=== PATIENT | male | born 1975 | race Caucasian/White ===

== ENCOUNTER → 2017-03-11 | Outpatient (CLI) | payer OTHER ==
[~2017-03-11] VITALS: Ht 182.9 cm; Wt 136.1 kg
[~2017-03-11] MED LIST: ALPR1TAB2 PO; GABA600T2 PO; HYDR50TA6 PO; IOHEXOL 180 MG/ML 10 ML VIAL. IT ONE; IOHEXOL 300 MG/ML 10ML VIAL. IT ONE; LIDOCAINE 1% / SOD BICARB 8.4% 20 ML VIAL. IJ ONE; LISI40TA PO; MELO15TA23 PO; METO50TA2 PO; OXYC-323 PO
[2017-03-11 09:24] VITALS: BP 134/92
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
== END | disposition home or self-care (01) ==
LOC: RAD 08:48
PROVIDERS: ATTEND Anesthesiology
DX: S39.92XA Unspecified injury of lower back, initial encounter (principal); M47.897 Other spondylosis, lumbosacral region; R20.0 Anesthesia of skin; V49.9XXA Car occupant (driver) (passenger) injured in unspecified traffic accident, initial encounter; Y93.89 Activity, other specified; Y92.89 Other specified places as the place of occurrence of the external cause; Y99.8 Other external cause status
CPT/HCPCS: 72129; 72132; 72270; Q9967

== ENCOUNTER → 2020-12-28 | Outpatient (CLI) | payer MEDICAID ==
[2017-03-11 09:24] VITALS: BP 134/92
[~2020-12-28] MED LIST changes: -GABA600T2 PO; +GABA600T7 PO; -HYDR50TA6 PO; +HYDR50TA9 PO; -IOHEXOL 180 MG/ML 10 ML VIAL. IT ONE; -IOHEXOL 300 MG/ML 10ML VIAL. IT ONE; -LIDOCAINE 1% / SOD BICARB 8.4% 20 ML VIAL. IJ ONE; +LISI-130 PO; -LISI40TA PO; -METO50TA2 PO; +METO50TA6 PO; -OXYC-323 PO; +OXYC1TAB15 PO
--- NOTE | 2020-12-28 10:40 | KCIC ---
MRI THORACIC SPINE WO, MR LUMBAR SPINE WO -[id number] History: COMPLEX REGIONAL PAIN SYNDROME TYPE 1, New onset of right lower leg pain and numbness after the shingles. Technique: Multiplanar, multi sequential MR imaging was performed of the thoracic and lumbar spine wi thout intravenous contrast. Comparison: None FINDINGS: THORACIC SPINE: Normal vertebral body height and alignment. No acute fracture. Intraosseous hemangioma at T3 vertebra l body. Normal spinal cord caliber and morphology with no significant abnormality. Intervertebral dis c heights are preserved. No canal stenosis or neuroforaminal narrowing. LUMBAR SPINE: Normal vertebral body height and alignment. No acute fracture. Conus terminates at the normal locatio n. No evidence of nerve root clumping. Modic type 2 degeneration at L5-S1. Interosseous hemangioma at S2 vertebral body. L1-L2: No canal or neuroforaminal narrowing. L2-L3: No canal or neuroforaminal narrowing. L3-L4: No canal or neuroforaminal narrowing. L4-L5: No canal or neuroforaminal narrowing. L5-S1: Mild diffuse disc bulge. No canal or significant neuroforaminal narrowing. Impression: Unremarkable thoracic and lumbar spine MRI. Electronically signed by: Lauren Murillo MD (12/28/2020 10:37 AM) [id number]
--- NOTE | 2020-12-28 10:40 | KCIC ---
MRI THORACIC SPINE WO, MR LUMBAR SPINE WO -[id number] History: COMPLEX REGIONAL PAIN SYNDROME TYPE 1, New onset of right lower leg pain and numbness after the shingles. Technique: Multiplanar, multi sequential MR imaging was performed of the thoracic and lumbar spine wi thout intravenous contrast. Comparison: None FINDINGS: THORACIC SPINE: Normal vertebral body height and alignment. No acute fracture. Intraosseous hemangioma at T3 vertebra l body. Normal spinal cord caliber and morphology with no significant abnormality. Intervertebral dis c heights are preserved. No canal stenosis or neuroforaminal narrowing. LUMBAR SPINE: Normal vertebral body height and alignment. No acute fracture. Conus terminates at the normal locatio n. No evidence of nerve root clumping. Modic type 2 degeneration at L5-S1. Interosseous hemangioma at S2 vertebral body. L1-L2: No canal or neuroforaminal narrowing. L2-L3: No canal or neuroforaminal narrowing. L3-L4: No canal or neuroforaminal narrowing. L4-L5: No canal or neuroforaminal narrowing. L5-S1: Mild diffuse disc bulge. No canal or significant neuroforaminal narrowing. Impression: Unremarkable thoracic and lumbar spine MRI. Electronically signed by: Lauren Murillo MD (12/28/2020 10:37 AM) [id number]
== END ==
LOC: KCIC MRI 08:07
PROVIDERS: ATTEND Physician Assistant
DX: M48.04 Spinal stenosis, thoracic region (principal); G90.521 Complex regional pain syndrome I of right lower limb
CPT/HCPCS: 72146; 72148

== ENCOUNTER → 2021-01-06 | Outpatient (CLI) | payer OTHER, MEDICAID ==
[2017-03-11 09:24] VITALS: BP 134/92
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
== END | disposition home or self-care (01) ==
LOC: PNCL 11:07
PROVIDERS: ATTEND Anesthesiology
DX: M54.5 Low back pain (principal); M79.604 Pain in right leg; I10 Essential (primary) hypertension; E66.9 Obesity, unspecified; Z90.49 Acquired absence of other specified parts of digestive tract; Z98.890 Other specified postprocedural states; Z79.899 Other long term (current) drug therapy
CPT/HCPCS: 99214; G0463

== ENCOUNTER → 2021-01-11 | Outpatient (CLI) | payer OTHER, MEDICAID ==
[2017-03-11 09:24] VITALS: BP 134/92
[~2021-01-11] MED LIST changes: +IOHEXOL 180 MG/ML 10 ML VIAL. ONE; +methylPREDNISolone ACETATE 40 MG/ML VIAL. ONE; +methylPREDNISolone ACETATE 80 MG/ML VIAL. ONE
--- NOTE | 2021-01-11 08:44 | PDOC ---
Progress Note - Pain Clinic Date of Service: DOS: DATE: 01/11/21 TIME: 08:42 Diagnosis: Dx: Lumbar radiculopathy post herpetic neuralgia History or Present Illness: HPI: 45-year-old male returns follow-up status post initial evaluation preauthorization for lumbar epidural steroid injection. Patient is obtained that authorization and would like to proceed. Patient reports still significant pain in the low back right lower extremity posterior gluteus posterior thigh posterior calf especially in the calf patient reports radiating tingling burning cramping aching and sharp constant in the back and the leg can be severe with walking and standing patient reports is a 10 on scale 10 is worse over the past week 8 on average 7 its least is an 8 today. Patient reports awakening from sleep occasionally with no new motor or sensory deficits no new bowel or bladder incontinence. Physical Exam: VS: Blood pressure is 159/108 pulse 75 respirations 18 temperature 98.2 F weight is 277 pounds PE: PHYSICAL EXAMINATION: GENERAL: The patient is awake, alert, oriented, appropriate, very pleasant demeanor HEENT: Shows normocephalic, atraumatic. Extraocular movements are intact and symmetrical. Oral cavity: Mucous membranes moist and pink. NECK: Shows anterior throat supple without palpable lymphadenopathy noted. Swallow reflex symmetrical. CHEST: Shows normal on inspection. Breath sounds are clear bilaterally. HEART: Shows S1, S2 clear. No murmurs auscultated. ABDOMEN: Soft, nontender, nondistended, obese. No palpable organomegaly is noted. No rebound or guarding demonstrated. BACK: Shows spine grossly in the midline. Normal-appearing cervical lordotic curvature. There is slightly increased thoracic kyphosis, some minor flattening of the lumbar lordotic curvature. Lumbar paraspinous muscles show symmetrical on inspection, on palpation shows some moderate tenderness diffusely throughout the upper, middle and lower distribution of the paraspinous muscles, but without specific trigger points, without radiation of pain. The patient has good rotational motion of the lumbar spine, both laterally as well as extension and flexion without significant difficulty. No tenderness over the spinous processes, sacrum or sacroiliac regions. EXTREMITIES: Lower extremities show deep tendon reflexes 2+ in the patellar and tendo calcaneus tendons. Motor exam is 4 on a scale of 5 with right dorsiflexion, extension, quadriceps and hamstring flexion and 5/5 on the left. Peripheral pulses are 1+ posterior tibial. No peripheral edema is noted bilaterally. Lower extremities are warm and dry to touch, equal in color and appearance. SKIN: Shows warm and dry, good turgor. No edema. No sores, rashes or bruising throughout. Procedure: Procedure: Options discussed with patient. Patient chart was reviewed his his current medication regimen updated current review of systems updated today as well. We will proceed with a lumbar epidural steroid injection stable fluoroscopic clyde nce. Risks were discussed including but not limited to: Bleeding, infection, possibility of epidural hematoma and subsequent neurological compromise, dural puncture, headaches, spinal cord and/or nerve damage, side effects of steroid medication, and poor results regarding pain control. Patient understands and wished to proceed. Patient return to the clinic in approximately 2 weeks for follow-up, was counseled as to return appointment activity level and side effects to be aware of. Medication Injected: Med Injected: Procedure is lumbar epidural steroid injection under local anesthetic using sterile prep and drape at the L5-S1 level using C-arm fluoroscopic guidance in both AP and lateral views medications injected is 120 mg Depo-Medrol +10mL preservative-free normal saline and 2 mL contrast- condition at discharge is stable patient tolerated procedure well had no complications. Condition at Discharge: Condition at Discharge: Condition at discharge is stable, patient tolerated the procedure well and had no complications. ALESSIO MORGAN MD January 11, 2021 08:44
--- NOTE | 2021-01-11 08:45 | PDOC4 ---
PROCEDURE Procedure Patient was consented for lumbar epidural steroid injection. Risks were dis cussed including but not limited to: Bleeding, infection, possibility of epidural hematoma and subsequent neurological compromise, dural puncture, headaches, spinal cord and/or nerve damage, side effects of steroid medication, and poor results regarding pain control. Patient understands and wished to proceed. Procedure is lumbar epidural steroid injection under local anesthetic using sterile prep and drape at the L5-S1 level using C-arm fluoroscopic guidance in both AP and lateral views medications injected is 120 mg Depo-Medrol +10mL preservative-free normal saline and 2 mL contrast- condition at discharge is stable patient tolerated procedure well had no complications. ALESSIO MORGAN MD January 11, 2021 08:45
== END | disposition home or self-care (01) ==
LOC: PNCL 08:02
PROVIDERS: ATTEND Anesthesiology
DX: M51.16 Intervertebral disc disorders with radiculopathy, lumbar region (principal); I10 Essential (primary) hypertension; Z79.899 Other long term (current) drug therapy; Z98.890 Other specified postprocedural states
CPT/HCPCS: 62323; J1030; J1040; Q9965

== ENCOUNTER → 2021-01-26 | Outpatient (CLI) | payer OTHER, MEDICAID ==
[2017-03-11 09:24] VITALS: BP 134/92
[~2021-01-26] MED LIST changes: -IOHEXOL 180 MG/ML 10 ML VIAL. ONE; -methylPREDNISolone ACETATE 40 MG/ML VIAL. ONE; -methylPREDNISolone ACETATE 80 MG/ML VIAL. ONE
--- NOTE | 2021-01-26 09:15 | PDOC ---
Progress Note - Pain Clinic Date of Service: DOS: DATE: 01/26/21 TIME: 09:12 Diagnosis: Dx: Lumbar radiculopathy Postherpetic neuralgia History or Present Illness: HPI: 45-year-old male returns follow-up status post lumbar epidural steroid injection x1. Patient reports about 65% improvement initially over the first 2 weeks or so the pain is been returning now over the past few days in the low back right lower extremity still present and again status post shingles outbreak with postherpetic neuralgia as well as lumbar radiculopathy on the right lower extremity patient reports is a 9 on scale 10 is worst over the past week 7 on average 7 its least is a 7 today patient ports aching sharp burning cramping at night sometimes awakened from sleep with some cramping and muscle spasms in the right leg and low back but not most nights patient reports it can be constant severe with activity standing walking still with some weakness in the right lower extremity with ambulation but without any overt muscle loss or motor dysfunction. Patient reports he has been increasing his distance walking doing household activities when working a little faster with his job as well as improved his posture with the right lower extremity but still significant pain and radiating pain in a radicular fashion following an L5-S1 dermatomal distribution on the right side. Patient reports no new motor or sensory deficits no bowel or bladder incontinence. Physical Exam: VS: Blood pressure is 149 pulse 70 respirations 16 temperature 98.2 F weight is 270 pounds PE: PHYSICAL EXAMINATION: GENERAL: The patient is awake, alert, oriented, appropriate, very pleasant demeanor HEENT: Shows normocephalic, atraumatic. Extraocular movements are intact and symmetrical. Oral cavity: Mucous membranes moist and pink. Dentition is intact. NECK: Shows anterior throat supple without palpable lymphadenopathy noted. Swallow reflex symmetrical. CHEST: Shows normal on inspection. Breath sounds are clear bilaterally. HEART: Shows S1, S2 clear. No murmurs auscultated. ABDOMEN: Soft, nontender, nondistended, obese. No palpable organomegaly is noted. BACK: Shows spine grossly in the midline. Normal-appearing cervical lordotic curvature. There is slightly increased thoracic kyphosis, some minor flattening of the lumbar lordotic curvature. Lumbar paraspinous muscles show symmetrical on inspection, on palpation shows some moderate tenderness diffusely throughout the upper, middle and lower distribution of the paraspinous muscles, but without specific trigger points, without radiation of pain. The patient has good rotational motion of the lumbar spine, both laterally as well as extension and flexion without significant difficulty. EXTREMITIES: Lower extremities show deep tendon reflexes through in the patellar and tendo calcaneus tendons. Motor exam is 4 on a scale of 5 with right dorsiflexion, extension, quadriceps and hamstring flexion and 5/5 on the left. Peripheral pulses are 1+ posterior tibial. No peripheral edema is noted bilaterally. Lower extremities are warm and dry to touch, equal in color and appearance. Straight leg raise noted to be positive on the right about 45 degrees, left is negative. SKIN: Shows warm and dry, good turgor. No edema. No sores, rashes or bruising throughout. Procedure: Procedure: Options were discussed with the patient. Patient chart was reviewed his current medication regimen updated current review of systems updated today as well. We will preauthorize patient for second lumbar epidural steroid injections very well after the first injection about 65% improvement but now the pain returning in a radicular fashion following L5-S1 dermatomal distribution on the right. Patient will continue with stretching strength exercises also medication management we will also add Flexeril nightly for muscle spasms. Patient was given instructions well side effects beware with the medication. Patient to follow-up in approximately 2 weeks as scheduled we will plan on second lumbar epidural steroid injection translaminar approach L5-S1 level. Medication Injected: Med Injected: None Condition at Discharge: Condition at Discharge: Condition at discharge stable. ALESSIO MORGAN MD Jan 26, 2021 09:15
== END | disposition home or self-care (01) ==
LOC: PNCL 08:16
PROVIDERS: ATTEND Anesthesiology
DX: M54.16 Radiculopathy, lumbar region (principal); B02.29 Other postherpetic nervous system involvement; I10 Essential (primary) hypertension; Z79.899 Other long term (current) drug therapy
CPT/HCPCS: 99212; G0463

== ENCOUNTER → 2021-02-08 | Outpatient (CLI) | payer OTHER, MEDICAID ==
[2017-03-11 09:24] VITALS: BP 134/92
--- NOTE | 2021-02-08 09:15 | PDOC ---
Progress Note - Pain Clinic Date of Service: DOS: DATE: 02/08/21 TIME: 09:12 Diagnosis: Dx: Lumbar radiculopathy with postherpetic neuralgia History or Present Illness: HPI: 45-year-old male returns for follow-up status post lumbar epidural steroid injection x1 without 65% improvement for the first few weeks after the injection patient reports pain returning on the right lower extremity but better with gabapentin pain in the posterior gluteus thigh and into the calf especially in the foot patient reports is aching sharp burning cramping radiating severe off-and-on intensity but always present reports it feels that it is fatigued so he is run a marathon with his right leg. Patient reports pain is a 7 on scale 10 is worst average and least of the past week and is a 7 today patient reports no new motor or sensory deficits gabapentin does help is not limping as much as he had since his last injection as well. Patient reports pain is returning now and is about 35% improvement at this time. Patient reports no new motor or sensory deficits no new bowel or bladder incontinence or other complaints. Physical Exam: VS: Blood pressure is 149/101 pulse 71 respirations 20 temperature 98.2 F weight is 278 pounds PE: PHYSICAL EXAMINATION: GENERAL: The patient is awake, alert, oriented, appropriate, very pleasant demeanor HEENT: Shows normocephalic, atraumatic. Extraocular movements are intact and symmetrical. NECK: Shows anterior throat supple without palpable lymphadenopathy noted. Swallow reflex symmetrical. ABDOMEN: Soft, nontender, nondistended, obese. BACK: Shows spine grossly in the midline. Normal-appearing cervical lordotic curvature. There is slightly increased thoracic kyphosis, some minor flattening of the lumbar lordotic curvature. Lumbar paraspinous muscles show symmetrical on inspection, on palpation shows some moderate tenderness diffusely throughout the upper, middle and lower distribution of the paraspinous muscles, but without specific trigger points, without radiation of pain. The patient has good rotational motion of the lumbar spine, both laterally as well as extension and flexion without significant difficulty. EXTREMITIES: Lower extremities show deep tendon reflexes 2+ in the patellar and tendo calcaneus tendons. Motor exam is 4 on a scale of 5 with right dorsiflexion, extension, quadriceps and hamstring flexion and 5/5 on the left. Peripheral pulses are 1+ posterior tibial. No peripheral edema is noted bilaterally. Lower extremities are warm and dry. SKIN: Shows warm and dry, good turgor. No edema. No sores, rashes or bruising throughout. Procedure: Procedure: Options discussed with the patient. Patient's old chart was reviewed his current medication regimen updated current review of systems updated today as well. We will preauthorize patient for a second lumbar epidural steroid injection with fluoroscopic guidance. Patient with clinical radiculopathy L5-S1 dermatomal distribution with postherpetic neuralgia and previous shingles outbreak in the same dermatomal distribution. Once approved, we will proceed with a translaminar L5-S1 level lumbar epidural steroid injection. Meantime patient continue with stretching strength exercises as tolerated as well as gabapentin as currently. Medication Injected: Med Injected: None Condition at Discharge: Condition at Discharge: Condition at discharge is stable. ALESSIO MORGAN MD Feb 08, 2021 09:15
== END | disposition home or self-care (01) ==
LOC: PNCL 08:39
PROVIDERS: ATTEND Anesthesiology
DX: M54.16 Radiculopathy, lumbar region (principal); B02.29 Other postherpetic nervous system involvement; I10 Essential (primary) hypertension; Z79.899 Other long term (current) drug therapy
CPT/HCPCS: 99212; G0463

== ENCOUNTER → 2021-02-09 | Outpatient (CLI) | payer OTHER, MEDICAID ==
[2017-03-11 09:24] VITALS: BP 134/92
[~2021-02-09] MED LIST changes: +IOHEXOL 180 MG/ML 10 ML VIAL. ONE; +methylPREDNISolone ACETATE 40 MG/ML VIAL. ONE; +methylPREDNISolone ACETATE 80 MG/ML VIAL. ONE
--- NOTE | 2021-02-09 15:47 | PDOC ---
Progress Note - Pain Clinic Date of Service: DOS: DATE: 02/09/21 TIME: 15:43 Diagnosis: Dx: Lumbar radiculopathy with lumbar postherpetic neuralgia History or Present Illness: HPI: 45-year-old male returns for follow-up status post lumbar epidural steroid injection x1 with 65% improvement after the postherpetic neuralgia in the L5-S1 dermatomal distribution on the right leg. Patient reports still some pain radiating the posterior gluteus posterior thigh posterior calf and foot but much better than it was patient reports it still noticeable with walking standing changing positions better with resting or sitting patient reports it wakes him from sleep about 2-3 times a night patient reports a 7 on scale 10 is worst average and least is a 7 today patient scribes as aching and sharp burning and cramping radiating can be constant severe with activity standing and walking specially when he is at work. Patient reports no new rashes, no new motor or sensory deficits no new bowel or bladder incontinence or other complaints. Physical Exam: VS: Blood pressure is 135/98 pulse 77 respirations 18 temperature 98.3 F weight is 2 8 0 pounds PE: PHYSICAL EXAMINATION: GENERAL: The patient is awake, alert, oriented, appropriate, very pleasant in demeanor. HEENT: Shows normocephalic, atraumatic. Extraocular movements are intact and symmetrical. Oral cavity: Mucous membranes moist and pink. Dentition is intact. NECK: Shows anterior throat supple without palpable lymphadenopathy noted. Swallow reflex symmetrical. CHEST: Shows normal on inspection. Breath sounds are clear bilaterally. HEART: Shows S1, S2 clear. No murmurs auscultated. ABDOMEN: Soft, nontender, nondistended. No palpable organomegaly is noted. No rebound or guarding demonstrated. BACK: Shows spine grossly in the midline. Normal-appearing cervical lordotic curvature. There is slightly increased thoracic kyphosis, some minor flattening of the lumbar lordotic curvature. Lumbar paraspinous muscles show symmetrical on inspection, on palpation shows some moderate tenderness diffusely throughout the upper, middle and lower distribution of the paraspinous muscles, but without specific trigger points, without radiation of pain. EXTREMITIES: Lower extremities show deep tendon reflexes 2+ in the patellar and tendo calcaneus tendons. Motor exam is 4 on a scale of 5 with right dorsiflexion, extension, quadriceps and hamstring flexion and 5/5 on the left. Peripheral pulses are 1 posterior tibial. No peripheral edema is noted rosetta aterally. Lower extremities are warm and dry to touch, equal in color and appearance. No new rashes or discoloration noted in the left or right lower extremities. SKIN: Shows warm and dry, good turgor. No edema. No sores, rashes or bruising throughout. Procedure: Procedure: Options were discussed with the patient. Patient's old chart was used with current medication regimen updated current review of systems updated today as well. We will proceed with a second in a series lumbar epidural steroid injection with fluoroscopic guidance. Risks were discussed including but not limited to: Bleeding, infection, possibility of epidural hematoma and subsequent neurological compromise, dural puncture, headaches, spinal cord and/or nerve damage, side effects of steroid medication, and poor results regarding pain control. Patient understands and wished to proceed. Patient will return to the clinic in approximate 2 weeks for follow-up, was counseled as to return appointment activity level and side effects be aware of. Medication Injected: Med Injected: Procedure is lumbar epidural steroid injection under local anesthetic using sterile prep and drape at the L5-S1 level using C-arm fluoroscopic guidance in both AP and lateral views medications injected is 120 mg Depo-Medrol +10mL preservative-free normal saline and 2 mL contrast- condition at discharge is stable patient tolerated procedure well had no complications. Condition at Discharge: Condition at Discharge: Condition at discharge is stable, patient tolerated the procedure well and had no complications. ALESSIO MORGAN MD Feb 09, 2021 15:47
--- NOTE | 2021-02-09 15:47 | PDOC4 ---
Procedure Note: Procedure Note: Patient was consented for lumbar epidural steroid injection. Risks were discussed including but not limited to: Bleeding, infection, possibility of epidural hematoma and subsequent neurological compromise, dural puncture, headaches, spinal cord and/or nerve damage, side effects of steroid medication, and poor results regarding pain control. Patient understands and wished to proceed. Procedure is lumbar epidural steroid injection under local anesthetic using sterile prep and drape at the L5-S1 level using C-arm fluoroscopic guidance in both AP and lateral views medications injected is 120 mg Depo-Medrol +10mL preservative-free normal saline and 2 mL contrast- condition at discharge is stable patient tolerated procedure well had no complications. ALESSIO MORGAN MD Feb 09, 2021 15:47
== END | disposition home or self-care (01) ==
LOC: PNCL 15:07
PROVIDERS: ATTEND Anesthesiology
DX: M54.16 Radiculopathy, lumbar region (principal); B02.29 Other postherpetic nervous system involvement; I10 Essential (primary) hypertension; Z79.899 Other long term (current) drug therapy
CPT/HCPCS: 62323; J1030; J1040; Q9965

== ENCOUNTER → 2021-08-02 | Outpatient (CLI) | payer MEDICAID ==
[2017-03-11 09:24] VITALS: BP 134/92
--- NOTE | 2021-08-02 10:06 | PDOC ---
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 patient reports that the pain is increasing in the low back and left leg he was seen initially last summer for some shingles issues but this is different the pain is radiating the posterior gluteus posterior thigh lateral thigh lateral calf posterior thigh and into the posterior calf and foot on the left side with walking standing changing positions patient reports awakening from sleep at night especially lays on his left side he has been to the emergency room twice for this has had oral steroids which helped significan tly but wear off soon as they are done patient reports pain is a 10 on scale 10 is worse over the past week 8 on average 6 its least is a 6 today patient ports is aching sharp burning cramping in the back shooting and radiating times in the left lower extremity patient reports no motor loss but significant fatigability and stumbling with the left leg frequently throughout his working day. Patient reports no bowel or bladder incontinence. Physical Exam: VS: Blood pressure is 147/82 pulse 83 respirations 18 temperature 98.9 F height 6 foot weight is 268 pounds PE: PHYSICAL EXAMINATION: GENERAL: The patient is awake, alert, oriented, appropriate, very pleasant in demeanor HEENT: Shows normocephalic, atraumatic. Extraocular movements are intact and symmetrical. Patient wearing eyeglasses. Oral cavity: Mucous membranes moist and pink. Dentition is intact. NECK: Shows anterior throat supple without palpable lymphadenopathy noted. Swallow reflex symmetrical. CHEST: Shows normal on inspection. Breath sounds are clear bilaterally, distant but no rales or rhonchi. HEART: Shows S1, S2 clear. No murmurs auscultated. ABDOMEN: Soft, nontender, nondistended. No palpable organomegaly is noted. BACK: Shows spine grossly in the midline. Normal-appearing cervical lordotic curvature. There is slightly increased thoracic kyphosis, some minor flattening of the lumbar lordotic curvature. Lumbar paraspinous muscles show symmetrical on inspection, on palpation shows some moderate tenderness diffusely throughout the upper, middle and lower distribution of the paraspinous muscles without spec ific trigger points, without radiation of pain. The patient has good rotational motion of the lumbar spine, both laterally as well as extension and flexion without significant difficulty. EXTREMITIES: Lower extremities show deep tendon reflexes 2+ in the patellar and tendo calcaneus tendons. Motor exam is 5 on a scale of 5 with right dorsiflexion, extension, quadriceps and hamstring flexion and 4/5 on the left. Peripheral pulses are 1+ posterior tibial. No peripheral edema is noted bilaterally. Lower extremities are warm and dry to touch, equal in color and appearance. SKIN: Shows warm and dry, good turgor. No edema. No sores, rashes or bruising throughout. Procedure: Procedure: Options were discussed with the patient. Patient chart was reviewed his current medication regimen updated current review of systems updated today as well. We will proceed with a lumbar epidural steroid injection today with fluoroscopic guidance risks were discussed including but not limited to: Bleeding, infection, possibility of epidural hematoma and subsequent neurological compromise, dural puncture, headaches, spinal cord and/or nerve damage, side effects of steroid medication, and poor results regarding pain control. Patient understands and wished to proceed. Patient will return to clinic in approximately 2 weeks for follow-up, was counseled as return appointment, activity level, and side effect to be aware of. Medication Injected: Med Injected: [id number] is lumbar epidural steroid injection under local anesthetic using sterile prep and drape at the L5-S1 level using C-arm fluoroscopic guidance in both AP and lateral views medications injected is 120 mg Depo-Medrol +10mL preservative-free normal saline and 2 mL contrast- condition at discharge is stable patient tolerated procedure well had no complications. Condition at Discharge: Condition at Discharge: Condition at discharge is stable, patient tolerated procedure well and had no complications. ALESSIO MORGAN MD Aug 02, 2021 10:06
--- NOTE | 2021-08-02 10:06 | PDOC4 ---
Procedure Note: ICD 10 Code: ICD 10 Code: M54.17 M51.87 Procedure Note: Patient was consented for lumbar epidural steroid injection with fluoroscopic guidance. Risks were discussed including but not limited to: Bleeding, infection, possibility of epidural hematoma and subsequent neurological compromise, dural puncture, headaches, spinal cord and/or nerve damage, side effects of steroid medication, and poor results regarding pain control. Patient understands and wished to proceed. Procedure is lumbar epidural steroid injection under local anesthetic using sterile prep and drape at the L5-S1 level using C-arm fluoroscopic guidance in both AP and lateral views medications injected is 120 mg Depo-Medrol +10mL preservative-free normal saline and 2 mL contrast- condition at discharge is stable patient tolerated procedure well had no complications. ALESSIO MORGAN MD Aug 02, 2021 10:06
== END | disposition home or self-care (01) ==
LOC: PNCL 09:24
PROVIDERS: ATTEND Anesthesiology
DX: M51.16 Intervertebral disc disorders with radiculopathy, lumbar region (principal); I10 Essential (primary) hypertension; Z79.899 Other long term (current) drug therapy
CPT/HCPCS: 62323; J1030; J1040; Q9965